=== PATIENT | female | born 1990 | race Caucasian/White ===

== ENCOUNTER 2019-07-27 18:08 | Emergency (ER) | payer OTHER ==
[~2019-07-27] VITALS: Ht 157.5 cm; Wt 121.1 kg
[2019-07-27 18:14] VITALS: BP 127/74
--- NOTE | 2019-07-27 18:19 | NUR ---
WAIT AT LOBBY
--- NOTE | 2019-07-27 19:55 | NUR ---
PT TO X-RAY VIA WHEELCHAIR
--- NOTE | 2019-07-27 21:09 | NUR ---
PT TAKEN TO TRIAGE TO BE SEEN BY ALESSIO DE JESUS
--- NOTE | 2019-07-27 21:09 | NUR ---
PT BIB SELF C/O PULSING CONSTANT NON-RADIATING LEFT LOWER BACK PAIN X 4 DAYS. REPORTS NAUSEA IN MORNING 3 DAYS AGO, DENIES NAUSEA AT THIS TIME. DENIES TRAUMA OR DYSURIA. - SWELLING, - REDNESS, + ROM. MED HX: DENIES
[2019-07-27] MEDS ORDERED: KETOROLAC 60 MG/2 ML VIAL IM ONE (21:15)
[2019-07-27 21:29] VITALS: BP 102/59
== END 2019-07-27 21:29 | disposition home or self-care (01) ==
LOC: MED 18:08
DX: M54.5 Low back pain (principal)
CPT/HCPCS: 72110; 81002; 81025; 96372; 99283; J1885

== ENCOUNTER 2019-08-19 09:20 | Emergency (ER) | payer OTHER ==
[~2019-08-19] VITALS: Ht 157.5 cm; Wt 116.2 kg
[2019-08-19 09:26] VITALS: BP 117/68
--- NOTE | 2019-08-19 09:29 | NUR ---
Ambulated to bed 4
--- NOTE | 2019-08-19 09:37 | NUR ---
29 YO FEMALE CO RIGHT EAR PAIN FOR 2D AND EARACHE FOR 3D. PT STATED NO DIZZINESS. TINNIUTIS AT TIMES. VISUALIZATION OF EAR SHOWED NO REDNESS, SWELLING OR EXCESS EARWAX. PT IS NOT TAKING ANY RX MED AND NO PMH.
--- NOTE | 2019-08-19 09:39 | NUR ---
ERMD AT BEDSIDE
[2019-08-19 09:47] VITALS: BP 117/68
--- NOTE | 2019-08-19 09:47 | NUR ---
Patient discharged with v/s stable. Written and verbal after care instructions given and explained. Patient alert, oriented and verbalized understanding of instructions. Ambulatory with steady gait. All questions addressed prior to discharge. ID band removed. Patient advised to follow up with PMD. Rx of MOTRIN AND CORTISPORIN OTIC DROPS given. Patient educated on indication of medication including possible reaction and side effects. Opportunity to ask questions provided and answered.
== END 2019-08-19 09:47 | disposition home or self-care (01) ==
LOC: MED 09:20
DX: H60.91 Unspecified otitis externa, right ear (principal); Z98.890 Other specified postprocedural states
CPT/HCPCS: 99283

== ENCOUNTER 2020-04-24 12:05 | Inpatient (IN) | payer OTHER, SELFPAY ==
[~2020-04-24] VITALS: Ht 160 cm; Wt 130.2 kg
[2020-04-24] MEDS ORDERED: CITRIC ACID/SODIUM CITRATE 30 ML UDC PO SCH (13:05)
[2020-04-24 13:43] LABS: BASOPHILS # (AUTO) 0.1 K/uL (0.00-0.22); BASOPHILS % (AUTO) 0.7 % (0.0-2.0); EOSINOPHILS # (AUTO) 0.1 K/uL (0-0.4); EOSINOPHILS % (AUTO) 0.5 % (0.0-4.0); HEMATOCRIT 37.3 % (36-48); LYMPHOCYTES # (AUTO) 2.2 K/uL (2.5-16.5); LYMPHOCYTES % (AUTO) 17.1 % (20.5-51.1); MEAN CORPUSCULAR HEMOGLOBIN 25 pg (27-31); MEAN CORPUSCULAR HGB CONC 32 g/dL (33-37); MEAN CORPUSCULAR VOLUME 76.4 fL (80-94); MONOCYTES # (AUTO) 0.5 K/uL (0.8-1.0); MONOCYTES % (AUTO) 4.1 % (1.7-9.3); NEUTROPHILS # (AUTO) 10.1 K/uL (1.8-7.7); NEUTROPHILS % (AUTO) 77.6 % (42.2-75.2); PLATELET COUNT (AUTO) 302 K/uL (140-450); RED BLOOD CELL COUNT(AUTO) 4.88 MIL/uL (4.20-5.40); RED CELL DISTRIBUTION WIDTH 19.1 % (11.6-13.7)
[2020-04-24 13:47] LABS: APPEARANCE,URINE CLEAR (CLEAR); BILIRUBIN,URINE NEGATIVE (NEGATIVE); BLOOD, URINE NEGATIVE (NEGATIVE); COLOR,URINE YELLOW (YELLOW); LEUKOCYTE ESTERASE ,URINE NEGATIVE (NEGATIVE); NITRITE, URINE NEGATIVE (NEGATIVE); UGLUCOSE NEGATIVE (NEGATIVE)
[2020-04-24] MEDS: LACTATED RINGERS 1,000 ML IV SCH ×2 (13:55→14:55)
[2020-04-24 13:57] LABS: ALBUMIN 2.7 g/dL (3.4-5.0); ANION GAP 15.9 (8-16); CARBON DIOXIDE 21.1 mmol/L (21-32); CREATININE 0.5 mg/dL (0.6-1.3); TOTAL BILIRUBIN 0.3 mg/dL (0.0-1.0)
[2020-04-24] MEDS ORDERED: MORPHINE PRES FREE 10 MG/10 ML AMP IV ONE (15:37)
[2020-04-24] MEDS ORDERED: METHYLERGONOVINE 0.2 MG/ML AMP IM PRN (15:45)
[2020-04-24] MEDS ORDERED: TEMAZEPAM 15 MG CAP PO PRN (15:45)
[2020-04-24] MEDS ORDERED: KETOROLAC 30 MG/ML VIAL IVP PRN (15:45)
[2020-04-24] MEDS ORDERED: oxyCODONE/APAP 5/325 MG 1 TAB TAB PO PRN ×2 (15:45)
[2020-04-24] MEDS ORDERED: SIMETHICONE 80 MG TAB.CHEW PO PRN (15:45)
[2020-04-24] MEDS ORDERED: diphenhydrAMINE 50 MG/ML VIAL ONE (15:46)
[2020-04-24] MEDS ORDERED: OXYTOCIN 20 UNITS/LR PREMIX 1,000 ML IV ONE (15:46)
[2020-04-24] MEDS ORDERED: MEPERIDINE 25 MG/ML SYR IVP PRN (16:20)
[2020-04-24] MEDS ORDERED: PNV91TAB10 PO (18:52)
[2020-04-24] MEDS ORDERED: LACTATED RINGERS 300 ML IV SCH (20:40)
[2020-04-24] MEDS: DOCUSATE SOD/SENNA 50/8.6 MG 1 TAB PO SCH (21:00)
[2020-04-24] MEDS ORDERED: LACTATED RINGERS 300 ML IV ONE (21:38)
[2020-04-25] MEDS ORDERED: OXYTOCIN 20 UNITS/LR PREMIX 1,000 ML IV ONE ×2 (01:44→10:11)
[2020-04-25] MEDS: OXYTOCIN 20 UNITS in LACTATED RINGERS 1,000 ML IV SCH ×2 (02:32→10:20)
[2020-04-25] MEDS: KETOROLAC 30 MG/ML VIAL IVP SCH ×2 (02:33→13:17)
[2020-04-25 06:04] LABS: BASOPHILS % (AUTO) 0.2 % (0.0-2.0); EOSINOPHILS % (AUTO) 0.2 % (0.0-4.0); HEMATOCRIT 28.5 % (36-48); HEMOGLOBIN 9.2 g/dL (12.0-16.0); LYMPHOCYTES # (AUTO) 1.6 K/uL (2.5-16.5); LYMPHOCYTES % (AUTO) 12.6 % (20.5-51.1); MEAN CORPUSCULAR HEMOGLOBIN 25 pg (27-31); MEAN CORPUSCULAR HGB CONC 32 g/dL (33-37); MEAN CORPUSCULAR VOLUME 76.7 fL (80-94); MONOCYTES # (AUTO) 0.5 K/uL (0.8-1.0); MONOCYTES % (AUTO) 4.1 % (1.7-9.3); NEUTROPHILS # (AUTO) 10.6 K/uL (1.8-7.7); NEUTROPHILS % (AUTO) 82.9 % (42.2-75.2); PLATELET COUNT (AUTO) 229 K/uL (140-450); RED BLOOD CELL COUNT(AUTO) 3.72 MIL/uL (4.20-5.40); RED CELL DISTRIBUTION WIDTH 19.5 % (11.6-13.7); WHITE BLOOD COUNT (AUTO) 12.7 K/uL (4.8-10.8)
--- NOTE | 2020-04-25 09:16 | NUR ---
PATIENT HAS BEEN SCREENED AND CATEGORIZED LOW NUTRITION RISK. PATIENT WILL BE SEEN WITHIN 7 DAYS OF ADMISSION. 05/01/[address]
[2020-04-25] MEDS ORDERED: CAMERA MC ONE (19:40)
[2020-04-25] MEDS: DOCUSATE SOD/SENNA 50/8.6 MG 1 TAB PO SCH (20:50)
[2020-04-26] MEDS: IBUPROFEN 800 MG TAB PO PRN ×3 (04:16→16:06)
== END 2020-04-26 16:30 | disposition home or self-care (01) | DRG 540 ==
LOC: MFCC 12:05 → UNDOADMIN 12:05 → MFCC 12:55
PROVIDERS: ADMIT Obstetrics & Gynecology; ATTEND Obstetrics & Gynecology
PROC: 10D00Z1 Extraction of Products of Conception, Low, Open Approach (ICD-10-PCS; principal; 2020-04-24 15:15)
DX: O34.211 Maternal care for low transverse scar from previous cesarean delivery (principal); Z3A.37 37 weeks gestation of pregnancy; Z37.0 Single live birth; Z20.822 Contact with and (suspected) exposure to COVID-19
CPT/HCPCS: 36415; 51702; 80053; 81003; 85025; 86592; 86886; 86900; 86901; 96361; 96374; J0690; J1200; J1885; J2270; J2590; J7060; J7120

== ENCOUNTER 2020-10-19 07:44 | Emergency (ER) | payer OTHER, SELFPAY ==
[~2020-10-19] VITALS: Ht 157.5 cm; Wt 124.7 kg
[~2020-10-19 07:44] MED LIST: PNV91TAB10 PO
[2020-10-19 07:48] VITALS: BP 126/64
--- NOTE | 2020-10-19 07:59 | NUR ---
Pt ambulated to bed 04.
[2020-10-19] MEDS ORDERED: KETOROLAC 60 MG/2 ML VIAL IM ONE (08:00)
--- NOTE | 2020-10-19 08:14 | NUR ---
DR. CARDENAS AT PT BEDSIDE FOR FURTHER EVALUATION.
--- NOTE | 2020-10-19 08:19 | NUR ---
30 Y/O FEMALE C/O LOW BACK PAIN 12/09 DESCRIBES ACHING RADIATES TO BILATERAL HIPS CONSTANT X3DAYS. PT STATES +SOB WITH DEEP BREATHING AND WHEN SITTING DUE TO PAIN. DENIES N/V, DENIES FEVER/CHILLS. DENIES PMH NKA
[2020-10-19] MEDS ORDERED: ACET-8386 PO (08:39)
[2020-10-19] MEDS ORDERED: IBUP-2213 PO (08:39)
[2020-10-19] MEDS ORDERED: ONDA8TAB87 PO (08:39)
[2020-10-19 08:46] VITALS: BP 126/64
--- NOTE | 2020-10-19 08:46 | NUR ---
Patient discharged with v/s stable. Written and verbal after care instructions given and explained. Patient alert, oriented and verbalized understanding of instructions. Ambulatory with steady gait. All questions addressed prior to discharge. ID band removed. Patient advised to follow up with PMD. Rx of zofran, ibuprofen, and hydrocodone/acetaminophen given. Patient educated on indication of medication including possible reaction and side effects. Opportunity to ask questions provided and answered.
== END 2020-10-19 08:46 | disposition home or self-care (01) ==
LOC: MED 07:44
DX: M54.5 Low back pain (principal); Z98.890 Other specified postprocedural states; Z79.899 Other long term (current) drug therapy
CPT/HCPCS: 81002; 81025; 96372; 99283; J1885

== ENCOUNTER 2020-12-24 12:17 | Emergency (ER) | payer OTHER ==
[~2020-12-24] VITALS: Ht 157.5 cm; Wt 122.5 kg
[~2020-12-24 12:17] MED LIST changes: +ACET-8386 PO; +IBUP-2213 PO; +ONDA8TAB87 PO
[2020-12-24 12:23] VITALS: BP 123/73
[2020-12-24] MEDS ORDERED: OFLO10SO16 RIGHT EAR (12:55)
[2020-12-24] MEDS ORDERED: NAPR-54 PO (12:55)
[2020-12-24 13:01] VITALS: BP 120/76
--- NOTE | 2020-12-24 13:01 | NUR ---
NO NURSING ASSESSMENTS DONE, NO COMPLETE ASSESSMENT NEEDED.
--- NOTE | 2020-12-24 13:02 | NUR ---
Patient discharged with v/s stable. Written and verbal after care instructions given and explained. Patient alert, oriented and verbalized understanding of instructions. Ambulatory with steady gait. All questions addressed prior to discharge. ID band removed. Patient advised to follow up with PMD. Rx of NAPROXEN, AND OFLAXACIN given. Patient educated on indication of medication including possible reaction and side effects. Opportunity to ask questions provided and answered.
== END 2020-12-24 13:01 | disposition home or self-care (01) ==
LOC: MED 12:17
DX: H60.93 Unspecified otitis externa, bilateral (principal); Z79.899 Other long term (current) drug therapy; Z98.890 Other specified postprocedural states
CPT/HCPCS: 99283

== ENCOUNTER 2021-10-28 10:05 | Emergency (ER) | payer OTHER ==
[~2021-10-28] VITALS: Ht 157.5 cm; Wt 124.3 kg
[~2021-10-28 10:05] MED LIST changes: +NAPR-54 PO; +OFLO10SO16 RIGHT EAR
[2021-10-28 10:10] VITALS: BP 109/60
--- NOTE | 2021-10-28 10:14 | NUR ---
AMBULATED TO BED 11
--- NOTE | 2021-10-28 10:23 | NUR ---
31 Y/O FEMALE BIB SELF C/O RIGHT EYE PAIN, REDNESS AND SWELLING NOTED ON THE LOWER EYELID X LAST NIGHT. DENIES RECENT INJURY OR TRAUMA, DENIES ANY NEW EYE MEDICATIONS OR MAKEUP USED NEAR THE EYE AREA. REPORTS YELLOW DISCHARGE FROM EYE TODAY. DENIES ANY BLURRING OF VISION, OR PAIN THE IN THE ACTUAL EYE BALL PMH: DENIES NKA
--- NOTE | 2021-10-28 10:28 | NUR ---
DR CARDENAS AT BEDSIDE FOR EVAL
[2021-10-28] MEDS ORDERED: IBUP-2213 PO (10:42)
--- NOTE | 2021-10-28 11:07 | NUR ---
Patient discharged with v/s stable. Written and verbal after care instructions given. Patient alert, oriented and verbalized understanding of instructions. Ambulatory with steady gait. All questions addressed prior to discharge. ID band removed. Patient advised to follow up with PMD. Rx of ibuprofen given. Opportunity to ask questions provided and answered.
== END 2021-10-28 11:07 | disposition home or self-care (01) ==
LOC: MED 10:05
DX: H00.012 Hordeolum externum right lower eyelid (principal); Z98.890 Other specified postprocedural states
CPT/HCPCS: 99282